=== PATIENT | male | born 1990 | race African-American/Black ===

== ENCOUNTER 2018-07-23 12:54 | Emergency (ER) | payer MEDICAID ==
[2018-07-23] MEDS ORDERED: Ibuprofen 800 MG Tab PO ONE (13:35)
--- NOTE | 2018-07-23 13:39 | EDM.PDOC ---
ED HPI GENERAL MEDICAL PROBLEM - General Chief Complaint: Back Pain or Injury Stated Complaint: back pain Time Seen by Provider: 07/23/18 12:55 Source of Information: Reports: Patient History Limitations: Reports: No Limitations - History of Present Illness INITIAL COMMENTS - FREE TEXT/NARRATIVE: History of present illness: []Patient has had 3 months of low back pain is not getting any better. Patient has not had any new injury. He states that his pain hurts every time he lifts something heavy way. He denies any pain radiating down his legs, numbness, tingling or urinary or fecal incontinence. Review of systems: As per history of present illness and below otherwise all systems reviewed and negative. Past medical history: As per history of present illness and as reviewed below otherwise noncontributory. Surgical history: As per history of present illness and as reviewed below otherwise noncontributory. Social history: No reported history of drug or alcohol abuse. Family history: As per history of present illness and as reviewed below otherwise noncontributory. Physical exam: General: Well developed, well nourished in NAD HEENT: Atraumatic, normocephalic, pupils reactive, negative for conjunctival pallor or scleral icterus, mucous membranes moist, throat clear, neck supple, nontender, trachea midline. Lungs: Clear to auscultation, breath sounds equal bilaterally, chest nontender. Heart: S1S2, regular, negative for clicks, rubs, or JVD. Abdomen: Soft, nondistended, nontender. Negative for masses or hepatosplenomegaly. Negative for costovertebral tenderness. Tenderness is all across the low back not specific for vertebral tenderness. Pelvis: Stable nontender. Genitourinary: Deferred. Rectal: Deferred. Extremities: Atraumatic, negative for cords or calf pain. Neurovascular unremarkable. Neuro: Awake, alert, oriented. Cranial nerves II through XII unremarkable. Cerebellum unremarkable. Motor and sensory unremarkable throughout. Exam nonfocal. Straight leg raise is negative reflexes equal bilaterally, raise his toes without difficulty Skin:warm and dry Diagnostics: None Therapeutics: Ibuprofen ED Course: Unremarkable Impression: Chronic low back pain Prescriptions: Diclofenac and Flexeril Plan: Follow-up PMD request physical therapy take meds as directed return if symptoms worsen or change. Definitive disposition and diagnosis as appropriate pending reevaluation and review of above. Lower Back Pain Score (Numeric/FACES): 4 - Related Data Allergies Allergy/AdvReac Type Severity Reaction Status Date / Time No Known Allergies Allergy Verified 06/06/18 19:04 Home Meds: Home Meds Cyclobenzaprine [Flexeril] 10 mg PO BID PRN #12 tab 07/23/18 [Rx] Diclofenac Sodium [Voltaren] 75 mg PO BIDMEALS PRN #20 tab.cr 07/23/18 [Rx] Past Medical History - Past Health History Medical/Surgical History: Denies Medical/Surgical History Genitourinary History: Reports: UTI, Recurrent Social & Family History - Family History Family Medical History: Noncontributory - Tobacco Use Smoking Status *Q: Never Smoker - Caffeine Use Caffeine Use: Reports: Energy Drinks - Recreational Drug Use Recreational Drug Use: No ED ROS GENERAL - Review of Systems Review Of Systems: ROS reveals no pertinent complaints other than HPI. ED EXAM,LOWER BACK PAIN/INJURY - Physical Exam Exam: See Below (See history of present illness) Course - Vital Signs Last Recorded V/S: Last Vital Signs Temp 99.2 F 07/23/18 13:08 Pulse 65 07/23/18 13:08 Resp 16 07/23/18 13:08 BP 108/63 07/23/18 13:08 Pulse Ox 100 07/23/18 13:08 - Orders/Labs/Meds Meds: Medications Discontinued Medications Generic Name Dose Route Start Last Admin Trade Name Freq PRN Reason Stop Dose Admin Ibuprofen 800 mg 07/23/18 13:35 Motrin PO 07/23/18 13:36 ONETIME ONE Departure - Departure Time of Disposition: 13:38 Disposition: Home, Self-Care 01 Condition: Good Clinical Impression: Chronic low back pain Qualifiers: Back pain laterality: bilateral Sciatica presence: without sciatica Qualified Code(s): M54.5 - Low back pain - Discharge Information *PRESCRIPTION DRUG MONITORING PROGRAM REVIEWED*: No *COPY OF PRESCRIPTION DRUG MONITORING REPORT IN PATIENT LINDSAY: No Prescriptions: Cyclobenzaprine [Flexeril] 10 mg PO BID PRN #12 tab PRN Reason: Pain Diclofenac Sodium [Voltaren] 75 mg PO BIDMEALS PRN #20 tab.cr PRN Reason: Pain Forms: ED Department Discharge
== END 2018-07-23 14:11 | disposition home or self-care (01) ==
LOC: MW.ED 12:54
DX: G89.29 Other chronic pain (principal); M54.5 Low back pain
CPT/HCPCS: 99283; A9270; 99282

== ENCOUNTER 2018-08-05 17:27 | Emergency (ER) | payer MEDICAID ==
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
[2018-08-05] MEDS ORDERED: cefTRIAXone 250 MG in Lidocaine 1% 0.9 ML IM ONE (19:07)
[2018-08-05] MEDS ORDERED: Azithromycin 250 MG Tab PO ONE (19:08)
== END 2018-08-05 19:35 | disposition home or self-care (01) ==
LOC: MW.ED 17:27
DX: R36.9 Urethral discharge, unspecified (principal); R30.0 Dysuria; F17.210 Nicotine dependence, cigarettes, uncomplicated
CPT/HCPCS: 81001; 87086; 87491; 87591; 96372; 99283; A9270; J0696

== ENCOUNTER 2020-02-15 13:00 | Emergency (ER) | payer MEDICAID, OTHER ==
[2020-02-15 14:24] LABS: BLOOD UREA NITROGEN,BUN 8 mg/dL (7.0-18.0); CARBON DIOXIDE,CO2 28.4 mmol/L (21.0-32.0); CHLORIDE,CL 108 mmol/L (98-107); GLUCOSE RANDOM 85 mg/dL (74-106); POTASSIUM,K 3.5 mmol/L (3.5-5.1); SODIUM,NA 143 mmol/L (136-148)
--- NOTE | 2020-02-15 14:31 | CR ---
Chest: 2 views of the chest were obtained. Comparison: No previous chest imaging. Mild scoliosis is noted. Lungs are clear with no acute parenchymal change. Heart size and mediastinum are normal. Impression: 1. Mild scoliosis. 2. Nothing acute is appreciated on 2 view chest x-ray. Diagnostic code #2 Study was dictated in MDT
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
== END 2020-02-15 15:00 | disposition home or self-care (01) ==
LOC: MW.ED 13:00
DX: R07.89 Other chest pain (principal); Z87.891 Personal history of nicotine dependence
CPT/HCPCS: 36415; 71046; 71046-26; 80048; 82728; 83615; 84484; 85025; 85379; 86140; 93005; 99284; 99285-25

== ENCOUNTER 2020-03-10 13:12 | Emergency (ER) | payer SELFPAY ==
[2020-03-10] MEDS ORDERED: Ibuprofen 800 MG Tab PO ONE (13:59)
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
== END 2020-03-10 14:11 | disposition home or self-care (01) ==
LOC: MW.ED 13:12
DX: S13.9XXA Sprain of joints and ligaments of unspecified parts of neck, initial encounter (principal); X50.1XXA Overexertion from prolonged static or awkward postures, initial encounter; Y93.H1 Activity, digging, shoveling and raking
CPT/HCPCS: 99283; A9270; 99282

== ENCOUNTER 2021-07-14 20:42 | Emergency (ER) | payer OTHER ==
[2021-07-14] MEDS ORDERED: Ketorolac 15 MG/ML SDV IM STA (21:35)
[2021-07-14] MEDS ORDERED: Lidocaine 5% 700 MG Patch TRDERM ONE (21:36)
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
== END 2021-07-14 23:49 | disposition home or self-care (01) ==
LOC: MW.ED 20:42
DX: M51.26 Other intervertebral disc displacement, lumbar region (principal)
CPT/HCPCS: 72131; 96372; 99283; A9270; J1885

== ENCOUNTER 2021-10-01 07:29 | Emergency (ER) | payer SELFPAY ==
[2021-10-01] MEDS ORDERED: Diazepam 2 MG Tab PO ONE (07:49)
[2021-10-01] MEDS ORDERED: Acetaminophen/oxyCODONE 325-5 MG Tab PO ONE (07:49)
[2021-10-01] MEDS ORDERED: Ketorolac 30 MG/ML SDV IM ONE (07:49)
[2021-10-01] MEDS ORDERED: Dexamethasone 10 MG/ML SDV IM STA (07:49)
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
--- NOTE | 2021-10-01 09:04 | CT ---
INDICATION: Neck injury and pain. TECHNIQUE: CT cervical spine without contrast. COMPARISON: None. FINDINGS: Vertebrae: Alignment is normal. There are no fractures or suspicious bony lesions. Discs and facet joints: Disc spaces and facets are within normal limits. Extraspinal findings: Prevertebral soft tissues, visualized airway, and visualized lungs are unremarkable. IMPRESSION: Unremarkable cervical spine CT. No signs of acute injury. Please note that all CT scans at this facility use dose modulation, iterative reconstruction, and/or weight-based dosing when appropriate to reduce radiation dose to as low as reasonably achievable. Dictated by Tima Gill MD @ 10/01/2021 9:03:50 AM (Electronically Signed)
== END 2021-10-01 09:31 | disposition home or self-care (01) ==
LOC: MW.ED 07:29
DX: M54.12 Radiculopathy, cervical region (principal); Z72.0 Tobacco use
CPT/HCPCS: 72125; 96372; 99283; A9270; J1100; J1885

== ENCOUNTER 2021-12-10 19:24 | Emergency (ER) | payer SELFPAY | END 2021-12-10 21:50 | disposition left against medical advice (07) | LOC: MW.ED 19:24 | DX: R07.9 Chest pain, unspecified (principal); Z53.21 Procedure and treatment not carried out due to patient leaving prior to being seen by health care provider | CPT/HCPCS: 93005 ==

== ENCOUNTER 2021-12-31 13:39 | Emergency (ER) | payer SELFPAY | END 2021-12-31 14:07 | disposition home or self-care (01) | LOC: MW.ED 13:39 | DX: M54.50 Low back pain, unspecified (principal) | CPT/HCPCS: 99283 ==

== ENCOUNTER 2022-01-03 09:15 | Emergency (ER) | payer SELFPAY ==
[2022-01-03] MEDS ORDERED: Diazepam 5 MG Tab PO ONE (09:44)
[2022-01-03] MEDS ORDERED: Ketorolac 30 MG/ML SDV IM ONE (09:44)
[2022-01-03] MEDS ORDERED: Morphine 4 MG/ML VIAL IM ONE (10:49)
[2022-01-03] MEDS ORDERED: Ondansetron 4 MG Tab.DIS PO ONE (10:49)
== END 2022-01-03 11:30 | disposition home or self-care (01) ==
LOC: MW.ED 09:15
DX: M54.2 Cervicalgia (principal); Z79.899 Other long term (current) drug therapy
CPT/HCPCS: 72125; 96372; 99284; A9270; J1885; J2270; 99282

== ENCOUNTER 2022-05-30 21:21 | Emergency (ER) | payer SELFPAY ==
[2022-05-30] MEDS ORDERED: Ketorolac 30 MG/ML SDV IM ONE (21:48)
[2022-05-30] MEDS ORDERED: Dexamethasone 10 MG/ML SDV IM STA (21:48)
== END 2022-05-30 22:51 | disposition home or self-care (01) ==
LOC: MW.ED 21:21
DX: M54.2 Cervicalgia (principal); R07.89 Other chest pain; M54.9 Dorsalgia, unspecified
CPT/HCPCS: 96372; 99283; J1100; J1885

== ENCOUNTER 2022-07-05 09:31 | Emergency (ER) | payer SELFPAY | END 2022-07-05 10:44 | disposition home or self-care (01) | LOC: MW.ED 09:31 | DX: G89.29 Other chronic pain (principal); M54.50 Low back pain, unspecified | CPT/HCPCS: 99283 ==

== ENCOUNTER 2022-10-06 10:41 | Emergency (ER) | payer SELFPAY ==
[2022-10-06] MEDS ORDERED: Sodium Chloride 0.9% 1,000 ML IV ONE (11:01)
[2022-10-06] MEDS ORDERED: Sodium Chloride 0.9% 10 ML Syringe FLUSH PRN (11:01)
[2022-10-06] MEDS ORDERED: Sodium Chloride 0.9% 2.5 ML Syringe FLUSH PRN (11:01)
[2022-10-06] MEDS ORDERED: Ondansetron 4 MG/2 ML SDV IVPUSH ONE (11:01)
[2022-10-06] MEDS ORDERED: Ketorolac 30 MG/ML SDV IVPUSH ONE (11:01)
[2022-10-06 11:34] LABS: CARBON DIOXIDE,CO2 29.4 mmol/L (21.0-32.0); POTASSIUM,K 4.4 mmol/L (3.5-5.1)
[2022-10-06] MEDS ORDERED: Iopamidol 755 MG/ML 500 ML Multipack Bottle IVPUSH ONE (12:10)
[2022-10-06] MEDS ORDERED: cefTRIAXone 1 GM in Sodium Chloride 0.9% 50 ML IV ONE (14:10)
[2022-10-06] MEDS ORDERED: Doxycycline 100 MG Cap PO ONE (14:11)
[2022-10-06] MEDS ORDERED: Ciprofloxacin 500 MG Tab PO ONE (14:11)
== END 2022-10-06 15:19 | disposition home or self-care (01) ==
LOC: MW.ED 10:41
DX: N41.9 Inflammatory disease of prostate, unspecified (principal); K52.89 Other specified noninfective gastroenteritis and colitis
CPT/HCPCS: 36415; 74177; 80053; 81003; 83690; 84484; 85025; 93005; 96361; 96365; 96375; 99285; A9270; J0696; J1885; J2405; J3490; J7030; Q9967

== ENCOUNTER 2022-10-16 12:05 | Emergency (ER) | payer SELFPAY ==
[2022-10-16] MEDS ORDERED: Aspirin 81 MG Tab.Chew PO ONE (12:12)
== END 2022-10-16 12:50 | disposition left against medical advice (07) ==
LOC: MW.ED 12:05
DX: R07.89 Other chest pain (principal)
CPT/HCPCS: 71045; 71045-26; 93005; 99285

== ENCOUNTER 2023-03-02 14:44 | Emergency (ER) | payer SELFPAY | END 2023-03-02 15:40 | disposition home or self-care (01) | LOC: MW.ED 14:44 | DX: Z18.89 Other specified retained foreign body fragments (principal) | CPT/HCPCS: 99282; 99283 ==